=== PATIENT | male | born 1980 | race Caucasian/White ===

== ENCOUNTER 2016-08-06 09:09 | Emergency (ER) | payer OTHER ==
[~2016-08-06] VITALS: Ht 172.7 cm; Wt 81.8 kg
[~2016-08-06 09:09] MED LIST: LORTAB 10-325 M1 TAB PO
[2016-08-06] MEDS ORDERED: KEFLEX500 MG PO (09:50)
[2016-08-06 09:51] VITALS: BP 130/83
== END 2016-08-06 09:54 | disposition home or self-care (01) | DRG 605 ==
LOC: ED 09:09
PROC: 0HQFXZZ Repair Right Hand Skin, External Approach (ICD-10-PCS; principal; 2016-08-06)
DX: S61.214A Laceration without foreign body of right ring finger without damage to nail, initial encounter (principal); W26.0XXA Contact with knife, initial encounter; Y93.89 Activity, other specified; Y92.414 Local residential or business street as the place of occurrence of the external cause

== ENCOUNTER 2016-08-14 07:40 | Emergency (ER) | payer OTHER ==
[~2016-08-14] VITALS: Ht 172.7 cm; Wt 85.0 kg
[~2016-08-14 07:40] MED LIST changes: +KEFLEX500 MG PO
[2016-08-14 07:58] VITALS: BP 129/86
== END 2016-08-14 08:12 | disposition home or self-care (01) | DRG 950 ==
LOC: ED 07:40
DX: S61.214D Laceration without foreign body of right ring finger without damage to nail, subsequent encounter (principal)

== ENCOUNTER 2017-05-19 19:04 | Emergency (ER) | payer OTHER ==
[~2017-05-19] VITALS: Ht 172.7 cm; Wt 95.0 kg
[2017-05-19] MEDS ORDERED: PERCOCET 5/325M1 TAB PO (21:23)
[2017-05-19] MEDS ORDERED: KEFLEX500 MG PO (21:23)
[2017-05-19 21:30] VITALS: BP 129/79
== END 2017-05-19 21:36 | disposition home or self-care (01) | DRG 605 ==
LOC: ED 19:04
PROC: 0HQFXZZ Repair Right Hand Skin, External Approach (ICD-10-PCS; principal; 2017-05-19)
DX: S61.411A Laceration without foreign body of right hand, initial encounter (principal); F17.210 Nicotine dependence, cigarettes, uncomplicated; J45.909 Unspecified asthma, uncomplicated; W20.8XXA Other cause of strike by thrown, projected or falling object, initial encounter; Y93.89 Activity, other specified; Y92.009 Unspecified place in unspecified non-institutional (private) residence as the place of occurrence of the external cause